=== PATIENT | female | born 1975 | race Hispanic/Latino ===

== ENCOUNTER 2020-02-15 10:53 | Inpatient (IN) | payer OTHER ==
[~2020-02-15] VITALS: Ht 160 cm; Wt 78.9 kg
[2020-02-15 11:46] LABS: EOSINOPHILS % 0.5 % (0.0-6.0); LYMPHOCYTES # (AUTO) 1.4 (1.0-3.2); MEAN CORPUSCULAR HEMOGLOBIN 12.7 pg (28-32); MEAN CORPUSCULAR HGB CONC 22.7 g/dL (31-35); MEAN CORPUSCULAR VOLUME 55.7 fL (81-99); MONOCYTES # (AUTO) 0.6 (0.2-0.8); MONOCYTES % 14.3 % (4.4-11.3); NEUTROPHILS # (AUTO) 2.1 (2.1-6.9); NEUTROPHILS % 49.7 % (38.7-80.0); PLATELET COUNT 232 x10e3/uL (140-360); RED BLOOD COUNT 3.79 x10e6/uL (3.6-5.1); RED CELL DISTRIBUTION WIDTH 22.8 % (11.7-14.4)
[2020-02-15 11:56] LABS: HEMOGLOBIN 4.8 g/dL (12.0-16.0)
[2020-02-15 11:57] LABS: HEMATOCRIT 21.1 % (34.2-44.1)
[2020-02-15 12:08] LABS: ALANINE AMINOTRANSFERASE 12 IU/L (0-55); ALBUMIN 3.7 g/dL (3.5-5.0); ALKALINE PHOSPHATASE 65 IU/L (40-150); ANION GAP 13.2 mmol/L (8-16); BLOOD UREA NITROGEN 10 mg/dL (7-26); BUN/CREATININE RATIO 16 (6-25); CALCIUM 8.9 mg/dL (8.4-10.2); CARBON DIOXIDE 24 mmol/L (22-29); CHLORIDE 106 mmol/L (98-107); CREATINE KINASE 43 IU/L (29-168); CREATININE, SERUM 0.63 mg/dL (0.57-1.11); EST GLOMERULAR FILTRATION RATE > 60 ML/MIN (60-); GLUCOSE 95 mg/dL (74-118); POTASSIUM 3.2 mmol/L (3.5-5.1); SODIUM 140 mmol/L (136-145)
[2020-02-15 12:09] LABS: % IRON SATURATION 2 % (15-50); IRON 10 ug/dL (50-170); TOTAL IRON BINDING CAPACITY 554 ug/dL (261-478); TRANSFERRIN 396 mg/dL (180-382)
[2020-02-15] MEDS ORDERED: SODIUM CHLORIDE 0.9% 250ML 250 ML IV ONE (12:15)
--- NOTE | 2020-02-15 12:33 | Emergency Department Note ---
History of Present Illnes History of Present Illness Chief Complaint: General Medicine Complaints History of Present Illness This is a 44 year old female arrived to the ED for b/l lower extremity cramping and low hb. Pt states she was seen at [facility] yesterday and was told her Hb was 4 and to go to the ED. Pt admits to heavy menstrual cycles that last up to 10 days. Pt admits to currently menstruating. Also complaining of weakness and dizziness. Chief Complaint Comment WAS SEEN AT [facility] 02/14/20 FOR LABS, WAS CALLED THIS AM TO HAVE PATIENT GO TO ER TO BE EVALUATED FOR LOW BLOOD COUNTS. " FOUR SOMETHING". NO C/O PAIN, DISCOMFORT, SOB OR ANY OTHER SYMPTOMS. PATIENT IN TRIAGE WITH NO S/S OF ACUTE DISTRESS. DR. GARCIA IN TRIAGE TO [facility] Historian: Patient Arrival Mode: Car Binder Fixer Required: No Onset (how long ago): unknown Severity: mild Duration (how long): week(s) Progression: worsening Context: recent illness, recent surgery, trauma/injury Relieving factors: none Exacerbating factors: movement Treatments prior to arrival: none Past Medical/Family History Physician Review I have reviewed the patient's past medical and family history. Any updates have been documented here. Past Medical History Unable to obtain PMH: other Recent Fever: No Clinical Suspicion of Infectio: No New/Unexplained Change in Ment: No Past Medical History: None Past Surgical History: None Social History Smoking Cessation: Never Smoker Counseling Performed: No Alcohol Use: None Any Illegal Drug Use: No TB Exposure/Symptoms: No Physically hurt or threatened: No Other Any Pre-Existing Lines (PICC,: No Is patient up to date on immun: Yes Last Flu: utd Last Pneumovax: utd Review of Systems Review of Systems Constitutional: no symptoms EENTM: no symptoms Cardiovascular: no symptoms Respiratory: no symptoms Gastrointestinal: no symptoms Genitourinary: no symptoms Musculoskeletal: no symptoms Neurological: no symptoms, weakness Psychological: no symptoms Endocrine: no symptoms Hematological/Lymphatic: as per HPI, other (menorrahgia ) Review of other systems All other systems reviewed and negative. Physical Exam Related Data Allergies: Coded Allergies: No Known Allergies (Unverified , 02/15/20) Triage Vital Signs Vital Signs Date Time Temp Pulse Resp B/P (MAP) Pulse Ox O2 Delivery O2 Flow Rate FiO2 02/15/20 11:09 98.4 88 16 117/76 100 Vital signs reviewed: Yes Physical Exam CONSTITUTIONAL Constitutional: well-developed, well-nourished HENT HENT: normocephalic, atraumatic, oropharynx clear/moist, nose normal HENT L/R: left ext ear normal, right ext ear normal EYES Eyes: PERRL, conjunctivae normal NECK Neck: ROM normal PULMONARY Pulmonary: effort normal, breath sounds normal CARDIOVASCULAR Cardiovascular: regular rhythm, heart sounds normal, capillary refill normal, normal rate GASTROINTESTINAL Abdominal: soft, nontender, bowel sounds normal GENITOURINARY Genitourinary: exam deferred SKIN Skin: warm, dry MUSCULOSKELETAL Musculoskeletal: ROM normal NEUROLOGICAL Neurological: alert, oriented x 3, no gross motor or sensory deficits PSYCHOLOGICAL Psychological: mood/affect normal, judgement normal Results Laboratory Result Diagram: 02/15/20 1100 02/15/20 1100 Laboratory Laboratory Tests Test 02/15/20 11:00 White Blood Count 4.12 x10e3/uL (4.8-10.8) Red Blood Count 3.79 x10e6/uL (3.6-5.1) Hemoglobin 4.8 g/dL (12.0-16.0) Hematocrit 21.1 % (34.2-44.1) Mean Corpuscular Volume 55.7 fL (81-99) Mean Corpuscular Hemoglobin 12.7 pg (28-32) Mean Corpuscular Hemoglobin Concent 22.7 g/dL (31-35) Red Cell Distribution Width 22.8 % (11.7-14.4) Platelet Count 232 x10e3/uL (140-360) Neutrophils (%) (Auto) 49.7 % (38.7-80.0) Lymphocytes (%) (Auto) 34.0 % (18.0-39.1) Monocytes (%) (Auto) 14.3 % (4.4-11.3) Eosinophils (%) (Auto) 0.5 % (0.0-6.0) Basophils (%) (Auto) 1.0 % (0.0-1.0) Neutrophils # (Auto) 2.1 (2.1-6.9) Lymphocytes # (Auto) 1.4 (1.0-3.2) Monocytes # (Auto) 0.6 (0.2-0.8) Eosinophils # (Auto) 0.0 (0.0-0.4) Basophils # (Auto) 0.0 (0.0-0.1) Absolute Immature Granulocyte (auto 0.02 x10e3/uL (0-0.1) Sodium Level 140 mmol/L (136-145) Potassium Level 3.2 mmol/L (3.5-5.1) Chloride Level 106 mmol/L (98-107) Carbon Dioxide Level 24 mmol/L (22-29) Anion Gap 13.2 mmol/L (8-16) Blood Urea Nitrogen 10 mg/dL (7-26) Creatinine 0.63 mg/dL (0.57-1.11) Estimat Glomerular Filtration Rate > 60 ML/MIN (60-) BUN/Creatinine Ratio 16 (6-25) Glucose Level 95 mg/dL (74-118) Calcium Level 8.9 mg/dL (8.4-10.2) Iron Level 10 ug/dL (50-170) Total Iron Binding Capacity 554 ug/dL (261-478) Percent Iron Saturation 2 % (15-50) Transferrin 396 mg/dL (180-382) Total Bilirubin 0.7 mg/dL (0.2-1.2) Aspartate Amino Transf (AST/SGOT) 14 IU/L (5-34) Alanine Aminotransferase (ALT/SGPT) 12 IU/L (0-55) Alkaline Phosphatase 65 IU/L (40-150) Creatine Kinase 43 IU/L (29-168) Total Protein 7.4 g/dL (6.5-8.1) Albumin 3.7 g/dL (3.5-5.0) Globulin 3.7 g/dL (2.3-3.5) Albumin/Globulin Ratio 1.0 (0.8-2.0) Lab results reviewed: Yes Laboratory comments marked microcytic anemia noted Critical Care Time Total Critical Care Time (min): 45 (Marked anemia with hemodynamic instability ) Critical care time exclusive o: separately billable procedures Critcal care necessary due to: circulatory failure (symptomatic anemia required continous monitoring during transfusion ) Subsequent provider I assumed direction of critical care for this patient from another provider of my specialty. Assessment & Plan Assessment & Plan Problems: (1) Microcytic anemia (2) Menometrorrhagia Assessment & Plan 44 F with symptomatic anemia -cbc, cmp -3 units PRBCs -classroom monitor -admission Last Vital Signs Date Time Temp Pulse Resp B/P (MAP) Pulse Ox O2 Delivery O2 Flow Rate FiO2 02/15/20 11:35 81 20 118/68 100 02/15/20 11:09 98.4 Home Meds No Active Prescriptions or Reported Meds Medications in the ED Sodium Chloride 250 ml @ 0 mls/hr ONCE ONCE IV ; Start 02/15/20 at 12:15; Stop 02/15/20 at 12:16 REGAN GARCIA DO February 15, 2020 12:17
[2020-02-15 12:53] LABS: FERRITIN < 1.00 ng/mL (4.63-204.00)
[2020-02-15 14:16] VITALS: BP 105/63
[2020-02-15 14:54] VITALS: BP 105/63
--- NOTE | 2020-02-15 15:16 | NUR ---
Recvd patient from ER, AAOx3, On Blood transfusion. denies any pain, no distress noted
[2020-02-15] MEDS ORDERED: SODIUM CHLORIDE 0.9% 250ML 250 ML ONE ×2 (16:58→20:45)
[2020-02-15] MEDS ORDERED: DIPHENHYDRAMINE HCL INJ 50 MG/ML VIAL IV PRN (17:15)
[2020-02-15] MEDS ORDERED: HYDRALAZINE HCL 20 MG/ML VIAL IV PRN (17:15)
[2020-02-15] MEDS ORDERED: ONDANSETRON HCL INJ 2MG/ML 2ML 2 MG/ML VIAL IV PRN (17:15)
[2020-02-15] MEDS ORDERED: ACETAMINOPHEN 325 MG TAB PO PRN (17:15)
--- NOTE | 2020-02-15 17:30 | NUR ---
2nd unit of blood initiated @ 1715, no adverse reaction noted this time, keep monitoring
--- NOTE | 2020-02-15 19:20 | NUR ---
RECEIVED REPORT FROM DAY NURSE. PATIENT IS RESTING COMFORTABLY IN THE BED. BED IS IN THE LOWEST POSITION AND CALL LIGHT IS WITHIN REACH. WILL CONTINUE TO MONITOR PATIENT.
[2020-02-15 20:00] VITALS: BP 112/71
[2020-02-15] MEDS: FERROUS SULFATE 325 MG TAB PO SCH (20:27)
--- NOTE | 2020-02-15 20:50 | NUR ---
THIRD UNIT OF BLOOD IS TRANSFUSING. NO ADVERSE REACTIONS NOTED. WILL CONTINUE TO MONITOR TRANSFUSION PROCESS.
[2020-02-15] MEDS ORDERED: TEMAZEPAM 15 MG CAP PO PRN (21:00)
[2020-02-15 21:04] VITALS: BP 112/71
--- NOTE | 2020-02-15 23:10 | History and Physical ---
PRIMARY CARE PHYSICIAN: No PCP listed. CONSULTING PHYSICIAN: Myles Gates MD, with Neurology. CHIEF COMPLAINT: Weakness, bleeding, bilateral leg numbness. HISTORY OF PRESENT ILLNESS: Ms. Lui is a 44-year-old female, seen at [facility] yesterday for bilateral leg numbness and heaviness. She had blood drawn while she was there and was called this morning and told her hemoglobin was 4 and to go to the emergency department. The patient reports that her bilateral leg numbness has been going on since 12/07/2019. It started at her feet and now has progressed gradually to her rib cage. With sitting for long periods of time, her legs swell. She denies any difficulty walking or driving. She felt anxious yesterday and decided to see a physician. She does admit to having history of heavy menses that last anywhere from 5-10 days. Her hemoglobin was found to be 4.8 on admission and 3 units of blood have been ordered. 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 PAST SURGICAL HISTORY: Two C sections, knee surgery. She had left knee arthroscopy, left knee lateral meniscectomy, chondroplasty of the lateral femoral condyle. FAMILY HISTORY: Mother had hypothyroidism. Father has no history of diabetes; however, his side of the family has extensive history of diabetes mellitus. SOCIAL HISTORY: The patient denies any history of tobacco, alcohol, or illicit drug use. She lives along with her 2 children. 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 Denies use of a walker or cane with ambulation. ALLERGIES: NO KNOWN ALLERGIES. MEDICATIONS: She does not take any at home. CURRENT MEDICATIONS: Protonix, Tylenol p.r.n., Benadryl p.r.n., hydralazine p.r.n., Zofran p.r.n., Restoril p.r.n. REVIEW OF SYSTEMS: CONSTITUTIONAL: Denies any weight loss or weight gain, fever or chills. She denies being around anyone sick. No sick contacts. No travel recently. EYES, EARS, NOSE, THROAT: Without complaints. RESPIRATORY: No shortness of breath, cough, phlegm. GENITOURINARY: No difficulty urinating, dysuria, or hematuria. PSYCHIATRIC: No psychiatric history. INTEGUMENTARY: No lesions or rash. CARDIOVASCULAR: No chest pain or palpitations. GASTROINTESTINAL: Last bowel movement was today. No nausea, vomiting, diarrhea, or constipation. No blood noted in the stool. MUSCULOSKELETAL: Bilateral lower extremity numbness, weakness, heaviness. She denies cramping. NEUROLOGIC: Bilateral lower extremity numbness, tingling, and heaviness. ENDOCRINE: Denies history of diabetes. HEMATOLOGIC: Currently on her menses cycle, has heavy menses usually, which last anywhere from 5-10 days. PHYSICAL EXAMINATION: VITAL SIGNS: Temperature 98.7, pulse 85, blood pressure 105/63, respirations 16, oxygen saturation 99% on room air. Height 5 feet 3 inches, weight 174 pounds. BMI of 30.81. GENERAL: The patient is lying supine in bed with head of bed elevated. Alert, awake. Her sister is at the bedside. LUNGS: Clear to auscultation. Respiratory pattern even and unlabored. HEENT: EOMI. NECK: Supple. No lymphadenopathy, thyromegaly, or JVD. No thyroid tenderness. CARDIOVASCULAR: Regular rate and rhythm. No murmur. ABDOMEN: Bowel sounds positive. Soft, nontender. EXTREMITIES: With no pitting edema, clubbing, cyanosis. No sign of DVT. Normal strength when patient needs my hands in pulling up with her feet. NEUROLOGICAL: GCS 15. Nonfocal. DIAGNOSTIC STUDIES AND LABORATORY DATA: Sodium 140, potassium 3.2, chloride 106, CO2 of 24, BUN 10, creatinine 0.63, estimated GFR greater than 60, glucose 95, calcium 8.9, iron 10, TIBC 554, percent saturation 2, transferrin 396, ferritin less than 1. Total bilirubin 0.7, AST 14, ALT 12, and alkaline phosphatase 65, creatine kinase 43, CK-MB 1.1, troponin I 0.012. Total protein 7.4, albumin 3.7. Mattson virus pending. No vascular studies or imaging studies. ASSESSMENT AND PLAN: 1. Symptomatic anemia. Three units of PRBCs have been ordered. We will follow up on H and H in the morning. Anemia workup has revealed iron deficiency. 2. Menometrorrhagia. Monitor. 3. Iron deficiency. Continue blood transfusions. We will start on ferrous sulfate. 4. Anxiety. Monitor. 5. Ambulatory dysfunction with bilateral leg numbness and heaviness. Physical Therapy to eval and treat. Neurology consult. The patient denies any spine problems or back pain; therefore, spine x-rays deferred. Apparently, legs swell with extended periods of sitting. We will get an echocardiogram to evaluate for congestive heart failure. 6. Obesity with BMI of 30.81. Dietary restrictions. 7. Prophylaxis: Oral Pepcid is on back order. We will start Protonix. H and P time spent 60 minutes. Billing code 35081. Dictated by Lloyd Cortez, ADEN Davey Kaye MD HWP/MODL /[id number]
[2020-02-16] VITALS (7 sets, daily range): BP systolic 105–118; BP diastolic 56–74
[2020-02-16 06:32] LABS: BASOPHILS # (AUTO) 0.1 (0.0-0.1); BASOPHILS % 1.4 % (0.0-1.0); EOSINOPHILS # (AUTO) 0.1 (0.0-0.4); EOSINOPHILS % 1.4 % (0.0-6.0); HEMATOCRIT 29.7 % (34.2-44.1); HEMOGLOBIN 7.9 g/dL (12.0-16.0); LYMPHOCYTES # (AUTO) 1.8 (1.0-3.2); LYMPHOCYTES % 36.1 % (18.0-39.1); MEAN CORPUSCULAR HEMOGLOBIN 17.1 pg (28-32); MEAN CORPUSCULAR HGB CONC 26.6 g/dL (31-35); MEAN CORPUSCULAR VOLUME 64.3 fL (81-99); MONOCYTES # (AUTO) 0.6 (0.2-0.8); MONOCYTES % 11.5 % (4.4-11.3); NEUTROPHILS # (AUTO) 2.5 (2.1-6.9); NEUTROPHILS % 49.4 % (38.7-80.0); PLATELET COUNT 133 x10e3/uL (140-360); RED BLOOD COUNT 4.62 x10e6/uL (3.6-5.1); RED CELL DISTRIBUTION WIDTH 30.4 % (11.7-14.4)
--- NOTE | 2020-02-16 06:38 | NUR ---
PATIENT IS RESTING COMFORTABLY IN THE BED. BED IS IN THE LOWEST POSITION AND CALL LIGHT IS WITHIN REACH.
--- NOTE | 2020-02-16 06:40 | NUR ---
Received bedside shift report from off going nurse. Patient is in stable condition, resting in bed. Call light within reach. Bed in the lowest position.
[2020-02-16 06:57] LABS: BLOOD UREA NITROGEN 9 mg/dL (7-26); BUN/CREATININE RATIO 13 (6-25); CALCIUM 8.8 mg/dL (8.4-10.2); CARBON DIOXIDE 23 mmol/L (22-29); CHLORIDE 108 mmol/L (98-107); CHOL/HDL RATIO 2.3 (3.0-3.6); CHOLESTEROL 99 MD/DL (0-199); CREATININE, SERUM 0.67 mg/dL (0.57-1.11); EST GLOMERULAR FILTRATION RATE > 60 ML/MIN (60-); GLUCOSE 85 mg/dL (74-118); HDL CHOLESTEROL 43 MG/DL (40-60); MAGNESIUM 1.8 MG/DL (1.3-2.1); PHOSPHORUS 3.6 MG/DL (2.3-4.7); SODIUM 138 mmol/L (136-145)
[2020-02-16 07:23] LABS: THYROID STIMULATING HORMONE 2.876 uIU/mL (0.350-4.940)
[2020-02-16 08:16] LABS: LDL CHOLESTEROL 48 MG/DL (60-130); TRIGLYCERIDES 57 MG/DL (0-149)
[2020-02-16] MEDS: ASCORBIC ACID 500 MG TAB PO SCH ×2 (08:25→15:30)
[2020-02-16] MEDS: PANTOPRAZOLE SOD 40 MG TABEC PO SCH (08:25)
[2020-02-16] MEDS: FERROUS SULFATE 325 MG TAB PO SCH ×3 (08:25→21:04)
[2020-02-16 10:29] LABS: MICROCYTOSIS SLIGHT
[2020-02-16 10:30] LABS: HYPOCHROMASIA SLIGHT
[2020-02-16] MEDS ORDERED: DIAZEPAM INJ 5 MG/ML 2 ML IV PRN ×2 (10:45→15:30)
[2020-02-16] MEDS ORDERED: CYANOCOBALAMIN 1,000 MCG TAB PO NR (10:45)
[2020-02-16] MEDS ORDERED: PROTONIX40 MG/ML PO (12:21)
[2020-02-16] MEDS ORDERED: FERROUS SULFAT325 MG PO (12:21)
[2020-02-16] MEDS ORDERED: ASCORBIC ACID500 MG PO (12:21)
[2020-02-16] MEDS ORDERED: DOCUSATE SODIU100 MG PO (12:21)
[2020-02-16] MEDS ORDERED: GADOBENATE DIMEGLUMINE 0 ML IV ONE (15:16)
[2020-02-16] MEDS ORDERED: GADOBENATE DIMEGLUMINE 1 ML IV ONE (15:16)
--- NOTE | 2020-02-16 15:30 | NUR ---
PATIENT OFF UNIT FOR MRI AT THIS TIME. PRE MEDICATED HER WITH ONE TIME DOSE OF VALIUM ORDERED.
--- NOTE | 2020-02-16 17:53 | Consultation ---
DATE OF CONSULTATION: Neurology Consultation HISTORY OF PRESENT ILLNESS: Seen the patient for paresthesias without paralysis, has been going on since December. Unclear etiology. She does have noted anemia also now of unclear etiology. She presented because her walking was getting progressively worse and she needed more acute assistance, so she came into the emergency room for further evaluation here. Perhaps, she was sent in by her primary doctor actually. She was in [facility] yesterday for bilateral lower extremities numbness and weakness. They found that she was severely anemic with a hemoglobin around 4. She was sent to emergency department directly. She is feeling increasingly discomfort when she is lying flat. She states she has not back pain but discomfort in general. She denies any sensory level, but does have an ascending weakness and numbness that started in her feet and marginally extended now to across her belly button. She denies bladder or bowel incontinence. Denies any hand involvement despite the fact that the numbness has progressed to her extremities. PAST SURGICAL HISTORY: She has had two C sections in the past and no recent surgeries. FAMILY HISTORY: Hypothyroidism but nothing about anemia or multiple sclerosis in the family. SOCIAL HISTORY: Denies tobacco or alcohol. ALLERGIES: NO KNOWN DRUG ALLERGIES. MEDICATIONS: No home medications. REVIEW OF SYSTEMS: Paresthesias that ascend from the feet; the weakness associated with that are both present. No bladder or bowel incontinence. No rashes. No nuchal rigidity. No headaches. No visual disturbances or changes. Denies hallucinations. Reports normal sleep patterns. She states she has pretty heavy menstrual cycles, but nothing out of the ordinary for her. Neurologically, she denies weakness in her hands. She is able to walk with some assistance . PHYSICAL EXAMINATION: VITAL SIGNS: Normal. Blood pressure is 105/63, temperature is 98.7, heart rate is 85, not tachycardiac. GENERAL: She is conscious, sitting in bed. She is responsive, follows commands and her speech is both fluent and eloquent. HEENT: Her extraocular muscles intact. Pupils reactive. Face symmetric. Tongue is midline. Speech is clear without dysarthria. There is no nuchal rigidity. NECK: No reactions are noted in the neck or the axilla. CARDIOVASCULAR: Regular rate and rhythm. PULMONARY: Clear. ABDOMEN: Soft, nontender without evidence of rebound tenderness or other tenderness. NEUROLOGIC: From neurologic perspective, she is oriented x3. Strength in the upper extremities is 5/5 with normal reflexes 2/4. Lower extremity reflexes are very brisk, 2+ to possibly 3 without spread. Toes are upgoing bilaterally. She has hypersensitivity to stimulation on the plantar aspect of the feet, which causes her to withdraw, it is hard to assess upgoing versus downgoing toes. She does not have bladder distention on my exam. 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 It will be progressive multifocal reversible leukoencephalopathy lesions both in the spine and the brain with symmetric weakness, so it is worth getting imaging of the brain, CT and L-spine. We will start workup for anemia and etiology of her anemia and then check . It might be a Guillain-[place] type syndrome, but that does not really fit with anemia and the reflexes are very brisk, but it is just a central rather than a peripheral process, so partially reversible leukoencephalopathy would be the diagnosis and we are working up this way. I think this patient is stable at this time. Lab workup is initiated and anemia workup is initiated, which is effectively send out. I am going to give her B12 injections on the off chance that she is having trouble processing the B12 to the blood-brain barrier. NAZ MOYA MD RR/MODL /[id number]
--- NOTE | 2020-02-16 18:20 | NUR ---
PATIENT BACK TO UNIT FOR MRI AT THIS TIME.
[2020-02-16 18:54] LABS: HEMATOCRIT 29.1 % (34.2-44.1); HEMOGLOBIN 7.8 g/dL (12.0-16.0)
--- NOTE | 2020-02-16 19:04 | NUR ---
BEDSIDE SHIFT REPORT GIVEN TO ONCOMING NURSE. PATIENT IS RESTING IN BED. NO ACUTE DISTRESS NOTED. CALL LIGHT WITHIN REACH. BED IN THE LOWEST POSITION.
--- NOTE | 2020-02-16 20:19 | Diagnostic Imaging Report ---
MR OF THE CERVICAL, THORACIC AND LUMBAR SPINE WITH AND WITHOUT CONTRAST History: Leg weakness, myelopathy Comparison studies: None Technique: Cervical: Sagittal T2, T1 and IR, axial T1. Postcontrast axial and sagittal T1 and, axial T2. Thoracic: Sagittal T2, T1 and IR. Postcontrast axial and sagittal T1 and, axial T2. Intravenous contrast: cc of Gadavist. Findings: Alignment: Normal cervical lordosis. Normal thoracic kyphosis. No scoliosis. Cervicomedullary junction: Patent foramen magnum. No Chiari one malformation. Soft tissues: No T2 hyperintense inflammatory changes. Spinal cord: Cord edema from T6 through T8 with marked compression by posterior epidural mass. The conus medullaris ends at L1-L2 Vertebrae: Normal in height and signal intensity. No fractures, infection or neoplasm. Degenerative changes: Cervical spine: C2-C3: No abnormalities. C3-C4: Mild disc degeneration with loss of T2 signal. Left uncinate process hypertrophy without significant canal stenosis or foraminal narrowing C4-C5: Mild disc degeneration with loss of T2 signal. Left central disc osteophyte complex with mild effacement of anterior subarachnoid space, without significant central canal stenosis or foraminal narrowing C5-C6: Mild disc degeneration with loss of T2 signal. Left central disc osteophyte complex without significant canal stenosis or foraminal narrowing C6-C7: Mild disc degeneration with loss of T2 signal. Patent canal and foramina C7-T1: Patent canal and foramina. Thoracic spine: 1. Posterior epidural mass spanning from T5 superior endplate through T9 inferior endplate, causing severe spinal cord compression from T6 inferior endplate through T8 inferior endplate, with most cord flattening and edema at T7-8 with obliterated subarachnoid space. This mass is hyperintense on T2, hypointense on T1 and avidly enhancing, extending to the bilateral T7-8 neural foramina and left intervertebral space with mild foraminal expansion. 2. The remaining thoracic spine has grossly patent canal and foramina. Lumbar spine: At L3-L4, mild disc degeneration with loss of T2 signal. Mild disc bulge without significant canal stenosis or foraminal narrowing. At L4-L5, mild disc degeneration with loss of T2 signal. Mild diffuse disc bulge without significant canal stenosis and mild right foraminal narrowing. At L5-S1, disc degeneration with loss of T2 signal. Mild diffuse disc bulge with superimposed small central disc protrusion results in no significant canal stenosis and mild right foraminal narrowing. IMPRESSION: 1. 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 2. Other mild degenerative changes of the cervical and lumbar spine without significant (moderate or severe) canal stenosis or foraminal narrowing The above critical finding was reported and acknowledged HORACE Tavarez by at 8:30 PM 02/16/2020. Signed by: DR Jules Arizmendi M.D. on 02/16/2020 8:58 PM
--- NOTE | 2020-02-16 20:23 | Diagnostic Imaging Report ---
History: Menometrorrhagia, myelopathy, leg weakness Comparison studies: None Technique: Pre-contrast: Sagittal T2; axial T1-IR, MPGR, DWI, T2 FLAIR Post-contrast: axial and coronal T1. Intravenous contrast: 15 cc of MultiHance Findings: Scalp: No abnormal signal. No masses. Bone marrow: Normal in signal intensity. Brain sulci: Appropriate for age. Ventricles: Normal in size . No hydrocephalus. Extra-axial: No masses, fluid collections or hemorrhage. Parenchyma: No abnormal signal intensities. No masses, hemorrhage, acute or chronic vascular insults. No enhancing abnormalities. Suprasellar region: No abnormalities. Craniocervical junction: No abnormalities. Patent foramen magnum. No Chiari one malformation.. Vessels: Normal flow-voids in the arteries and sinuses. Incidental findings: Mucous retention cyst at the left maxillary sinus. IMPRESSION: 1. No intracranial abnormality Signed by: DR Jules Arizmendi M.D. on 02/16/2020 8:19 PM
--- NOTE | 2020-02-16 20:43 | NUR ---
Received MRI results from Radiologist, ordered to inform medical team about spinal canal mass, cord compression. Dr. Kaye was made aware through ADEN Lopes, no new orders. patient was made aware of the results as per instructions of the radiologist patient was educated about maintaining bed rest, patient verbalized understanding. Patient was instructed to call for help at all times and never engage in any vigorous activities until seen and cleared by the medical team. Currently awaiting instructions on the next plan of action from the medical team.
--- NOTE | 2020-02-16 22:30 | NUR ---
returned call regarding patients MRI results. has started patient on Decadron IV 6mg q 6 hours.
[2020-02-16] MEDS: DEXAMETHASONE SOD PHOS INJ 4 MG/ML VIAL IV SCH (23:10)
[2020-02-17] VITALS: BP 98/54
[2020-02-17 04:00] VITALS: BP 94/55
[2020-02-17] MEDS: DEXAMETHASONE SOD PHOS INJ 4 MG/ML VIAL IV SCH ×2 (05:48→12:12)
[2020-02-17 06:40] LABS: BASOPHILS % 0.7 % (0.0-1.0); EOSINOPHILS % 0.2 % (0.0-6.0); HEMATOCRIT 29.9 % (34.2-44.1); LYMPHOCYTES # (AUTO) 0.9 (1.0-3.2); LYMPHOCYTES % 15.5 % (18.0-39.1); MEAN CORPUSCULAR HGB CONC 26.8 g/dL (31-35); MEAN CORPUSCULAR VOLUME 63.6 fL (81-99); MONOCYTES # (AUTO) 0.1 (0.2-0.8); MONOCYTES % 2.3 % (4.4-11.3); NEUTROPHILS # (AUTO) 4.7 (2.1-6.9); NEUTROPHILS % 80.8 % (38.7-80.0); PLATELET COUNT 232 x10e3/uL (140-360)
--- NOTE | 2020-02-17 06:50 | NUR ---
Received bedside shift report from off going nurse. Patient is resting in bed. No acute distress noted. Call light within reach. Bed in the lowest position.
[2020-02-17 06:59] LABS: ALANINE AMINOTRANSFERASE 16 IU/L (0-55); ALBUMIN 3.5 g/dL (3.5-5.0); ALKALINE PHOSPHATASE 65 IU/L (40-150); ANION GAP 12.7 mmol/L (8-16); BLOOD UREA NITROGEN 8 mg/dL (7-26); BUN/CREATININE RATIO 13 (6-25); CALCIUM 8.9 mg/dL (8.4-10.2); CARBON DIOXIDE 23 mmol/L (22-29); CHLORIDE 108 mmol/L (98-107); CREATININE, SERUM 0.63 mg/dL (0.57-1.11); EST GLOMERULAR FILTRATION RATE > 60 ML/MIN (60-); GLUCOSE 127 mg/dL (74-118); POTASSIUM 3.7 mmol/L (3.5-5.1); SODIUM 140 mmol/L (136-145)
--- NOTE | 2020-02-17 07:03 | NUR ---
report given to day nurse. patient is resting comfortably in the bed. bed is n the lowest position and call light is within reach.
[2020-02-17 07:53] VITALS: BP 107/53
[2020-02-17] MEDS: FERROUS SULFATE 325 MG TAB PO SCH (07:58)
[2020-02-17] MEDS: PANTOPRAZOLE SOD 40 MG TABEC PO SCH (07:58)
[2020-02-17] MEDS: ASCORBIC ACID 500 MG TAB PO SCH (07:58)
[2020-02-17 08:27] VITALS: BP 107/53
[2020-02-17 08:27] LABS: MICROCYTOSIS SLIGHT
[2020-02-17 08:28] LABS: HYPOCHROMASIA SLIGHT; RBC MORPHOLOGY COMMENT ABNORMAL
--- NOTE | 2020-02-17 08:47 | NUR ---
DAY 2 OBS. DISCUSSED PATIENT W/ MADDIE BAKER FACILITIES DIRECTOR. SHE STATED SHE WILL DC PT TODAY. PLANNED TO DC YESTERDAY, BUT STAT MRI REPORT NOT READY UNTIL AFTER 20:00.
--- NOTE | 2020-02-17 10:16 | NUR ---
Met with Renetta Hunter DEICER TESTER. She states pt has mass on spine and needs to transfer to [facility]. CM met with pt, and she is aware of plan and agrees.
--- NOTE | 2020-02-17 10:46 | NUR ---
CM notified Nursing Batch Unit Treater, Unique Zelaya RN of initiating transfer. CM called transfer center for [facility], and spoke with Sushila Holley. Faxed Facesheet and MRI report to [phone]. Angela VU on [facility] is getting radiology CD to send with patient.
[2020-02-17 11:16] VITALS: BP 122/71
--- NOTE | 2020-02-17 11:46 | NUR ---
s: patient with paresthesias, no bladder or bowel disfunction. 98.1 98/54 1 59 PHYSICAL EXAMINATION: VITAL SIGNS GENERAL: She is conscious, sitting in bed. She is responsive, follows commands and her speech is both fluent and eloquent. HEENT: Her extraocular muscles intact. Pupils reactive. Face symmetric. Tongue is midline. Speech is clear without dysarthria. There is no nuchal rigidity. NECK: No reactions are noted in the neck or the axilla. CARDIOVASCULAR: Regular rate and rhythm. - johana cardic PULMONARY: Clear. ABDOMEN: Soft, nontender without evidence of rebound tenderness or other tenderness. NEUROLOGIC: From neurologic perspective, she is oriented x3. Strength in the upper extremities is 5/5 with normal reflexes 2/4. Lower extremity reflexes are very brisk, 2+ to possibly 3 without spread. Toes are upgoing bilaterally. She has hypersensitivity to stimulation on the plantar aspect of the feet, which causes her to withdraw, it is hard to assess upgoing versus downgoing toes. She does not have bladder distention on my exam. a/p compresive lesion noted in spinal canal steroids initiated, refer and transfer to surgical eval stat b12 replenishment discussed with patient. she expressed understanding
--- NOTE | 2020-02-17 12:16 | NUR ---
Awaiting acceptance to [facility]. Faxed results of Coronavirus as requested
--- NOTE | 2020-02-17 13:09 | NUR ---
Pt has been accepted to [facility]. Going to room 5005. MOT initiated and given to Ashley VU. Gave her verbal report. Notified patient as well. Notified Unique VU [employer] Electrician.
--- NOTE | 2020-02-17 13:22 | NUR ---
CALLED REPORT TO HORACE LAM @ [facility] AT THIS TIME.
--- NOTE | 2020-02-17 14:35 | NUR ---
RECEIVED DISCHARGE ORDER FROM ADEN PERKINS FOR PATIENT TO BE TRANSFERRED TO [facility]. PATIENT IS IN STABLE CONDITION. IV LINE TO LEFT ANTECUBITAL 20G IS INTACT, SALINE FLUSHED. TRANSFERRED VIA AMBULANCE. TRANSFER PAPERWORK INCLUDING RADIOLOGY CD'S INSIDE TRANSFER PACKET GIVEN TO EMS PERSONNEL.
--- NOTE | 2020-02-17 20:07 | Consultation ---
DATE OF CONSULTATION: 02/17/2020 REASON FOR CONSULTATION: Thoracic spinal tumor. HISTORY OF PRESENT ILLNESS: The patient is a 44-year-old woman who presents with progressive ascending numbness starting from her feet and extending to the chest symmetrically and bilaterally since December of this year. She denies any weakness. She has not fallen. She denies incontinence. She denies any significant pain except for mild aching in her lower back. She denies any symptoms in her upper extremities. She was admitted with a hemoglobin of 4.8, presumably secondary to menorrhagia and was transfused and her hemoglobin is currently 8. She underwent MRI of the brain and entire spine where a large thoracic spinal tumor was found and I was consulted. PHYSICAL EXAMINATION: On examination, the patient is alert and oriented with intact memory and fluent speech. She is able to stand and walk without any difficulty. Motor strength is full and symmetric in the upper and lower extremities. Sensory testing reveals a sensory level below the breasts symmetrically and bilaterally, which is quite dense. Deep tendon reflexes are 1+ in the biceps and triceps and 3+ in the patella tendons and 2+ in the Achilles tendons. Plantar responses are extensor bilaterally. IMAGING PROCEDURE: MRI of the thoracic spine was reviewed. There is a large uniformly enhancing tumor posterior to the spinal cord which extends from the level of T5 to the level of T9 with an extensive dural tail superiorly and inferiorly. The tumor appears to be both intradural and extradural and extends through the neural foramina bilaterally, worse on the left as far as the ribs. 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 This may represent an aggressive meningioma or a metastatic tumor. It is not a nerve sheath tumor. RECOMMENDATIONS: The patient will be transferred to [facility] today in preparation for surgery tomorrow. She has already been started on Decadron. I had an extensive discussion with the patient and her sister and described the risks of surgery including complete paralysis below the waist, weakness of the legs without paralysis, persistent numbness, urinary incontinence, CSF leakage and meningitis, the possibility of wound dehiscence, and likelihood of incomplete resection, which may require additional surgeries or radiation at some point in the future. She understands all these issues and gives informed consent to the treatment plan. Braeden Ulloa MD PP/HIPOLITO /[id number]
--- NOTE | 2020-02-18 08:08 | Discharge Summary ---
ADMISSION DIAGNOSES: 1. Symptomatic anemia. 2. Menometrorrhagia. 3. Iron deficiency. 4. Anxiety. 5. Ambulatory dysfunction with leg numbness and heaviness. 6. Obesity. DISCHARGE DIAGNOSES: 1. Symptomatic anemia. 2. Menometrorrhagia. 3. Iron deficiency. 4. Anxiety. 5. Ambulatory dysfunction with leg numbness and heaviness. 6. Obesity with a BMI of 30.8. 7. Acute blood loss anemia secondary to menometrorrhagia. 8. Posterior epidural mass spanning from T5 through T9 with severe spinal cord compression and edema. 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 SURGICAL HISTORY: Two C-sections and knee surgery of the left knee. FAMILY HISTORY: The patient's dad has diabetes. SOCIAL HISTORY: Noncontributory. HOSPITAL COURSE: A 44-year-old female, was told to come to the ER on 02/14/2020, due to a hemoglobin of 4. She reports bilateral leg numbness since about 12/07/2019. It started at her feet and now at her rib cage, if sitting for a long period of time, her legs swell. She denies difficulty walking or driving. She had a hemoglobin of 4.8 on admission. She was given three PRBCs. The hemoglobin came up to 7.9. Due to the neurological symptoms, an MRI of the C, T, and L-spine as well as the brain were ordered. The findings were the posterior epidural mass spanning from T5 through T9, which results in severe spinal cord compression and edema. Extension and expansion of the T7 to T8 left neural foramina favors peripheral nerve sheath tumor. The MRI of the brain was negative. Per Neurology recommendation, a B12 was ordered, which was normal and TSH level was normal. The patient will transfer to [facility] for per Neurosurgery recommendation. The patient and sister agrees to plan. Vital signs stable. The patient afebrile. Dictated by Renetta Hunter NP Davey Kaye MD BERNADETTE/MODL /[id number]
== END 2020-02-17 14:35 | disposition short-term general hospital (02) | DRG 565 ==
LOC: ER 10:53 → ERHOLD 12:34 → MED/SURG3 13:55 → OBSVTOIN 02-17 10:14
PROVIDERS: ADMIT Internal Medicine; ATTEND Internal Medicine
PROC: 30230N1 Transfusion of Nonautologous Red Blood Cells into Peripheral Vein, Open Approach (ICD-10-PCS; principal; 2020-02-17)
DX: D49.2 Neoplasm of unspecified behavior of bone, soft tissue, and skin (principal); D62 Acute posthemorrhagic anemia; C72.0 Malignant neoplasm of spinal cord; N92.1 Excessive and frequent menstruation with irregular cycle; F41.9 Anxiety disorder, unspecified; R26.9 Unspecified abnormalities of gait and mobility; E66.9 Obesity, unspecified; Z68.30 Body mass index [BMI] 30.0-30.9, adult
CPT/HCPCS: 36415; 70553; 72156; 72157; 72158; 80048; 80053; 80061; 82270; 82550; 82553; 82607; 82728; 82747; 82948; 83036; 83540; 83735; 84100; 84134; 84443; 84466; 84484; 84630; 85014; 85018; 85025; 86340; 86850; 86900; 86920; 87635; 93005; 93306; G0378; J1100; J3360; J7050; P9016